=== PATIENT | male | born 1985 | race Caucasian/White ===

== ENCOUNTER 2016-05-29 10:22 | Day surgery (SDC) | payer OTHER ==
[~2016-05-29] VITALS: Ht 175.3 cm; Wt 76.7 kg
[~2016-05-29 10:22] MED LIST: AZULFIDINE500 MG/TAB PO; CIPRO 500MG TA500 MG PO; FLAGYL500 MG PO; PRILOSEC 20MG20 MG PO; ULTRAM 50MG TAB50 MG PO
[2016-05-29 10:44] VITALS: BP 108/69; PULSE 61; TEMP 99.1
[2016-05-29 12:22] VITALS: BP 101/56; PULSE 64
[2016-05-29 12:40] VITALS: BP 99/65; PULSE 59
[2016-05-29 12:55] VITALS: BP 100/64; PULSE 61
[2016-05-29 13:11] VITALS: BP 108/64; PULSE 77
== END 2016-05-29 13:25 | disposition home or self-care (01) ==
LOC: SDCO 10:22
DX: R93.3 Abnormal findings on diagnostic imaging of other parts of digestive tract (principal); R19.4 Change in bowel habit; K65.1 Peritoneal abscess; F41.9 Anxiety disorder, unspecified; Z87.19 Personal history of other diseases of the digestive system; Z79.899 Other long term (current) drug therapy; Z79.52 Long term (current) use of systemic steroids
CPT/HCPCS: J2250; J3010; J7030